=== PATIENT | female | born 1960 | race African-American/Black ===

== ENCOUNTER 2016-11-19 09:19 | Inpatient (IN) | payer OTHER ==
[2016-11-19 09:43] VITALS: BMI 15.7
--- NOTE | 2016-11-19 11:22 | HP ---
COWS - Scale Resting Pulse: 1= [place] 81-100 Sweatin= Chills/Flushing Restless Observation: 1= Difficult to Sit Still Pupil Size: 1= Pupils >than Normal Bone or Joint Aches: 2= Severe Diffuse Aches Runny Nose/ Eye Tearin= Runny Nose/Eyes GI Upset > 30mins: 3= Vomiting/Diarrhea Tremor Observation: 2= Slight Tremor Visible Yawning Observation: 1= 1-2x During Session Anxiety or Irritability: 2=Irritable/Anxious Goose Flesh Skin: 0=Smooth Skin COWS Score: 16 Admission [facility] Chief Complaint: "I want to stop." Pt. is here to Detox from Heroin. Allergies/Adverse Reactions: Allergies Allergy/AdvReac Type Severity Reaction Status Date / Time aspirin Allergy Intermediate Hives Verified 11/19/16 11:03 apple juice Allergy Intermediate Hives Uncoded 11/19/16 11:03 History of Present Illness: Pt. is a 56 YO female here to Detox from Heroin. This is pt.'s first admission to [facility] for Detox. Exam Limitations: No Limitations - Ebola screening Have you traveled outside of the country in the last 21 days: No Have you had contact with anyone from an Ebola affected area: No Have you been sick,other than usual withdrawal symptoms: No Do you have a fever: No - Review of Systems Constitutional: Chills, Diaphoresis, Fever, Loss of Appetite, Malaise, Night Sweats, Changes in sleep, Unexplained wgt Loss (Lost approx. 40 lbs. over last 2 weeks.) EENT: reports: Tearing, Nose Congestion, Sinus Pressure, Other (Upper and Lower dentures- pt. did not bring them with her. Pt. okay to chew Regular diet.) Respiratory: reports: SOB with Exertion, Productive cough Cardiac: reports: Palpitations, Syncope (Last Episode: approx. 3 months ago. Pt. went to ER at that time.) GI: reports: Nausea, Poor Appetite, Indigestion, Other (Heartburn.) : reports: No Symptoms Reported Musculoskeletal: reports: Back Pain, Joint Pain, Joint Swelling, Joint Stiffness Integumentary: reports: No Symptoms Reported Neuro: reports: Headache, Tremors Endocrine: reports: No Symptoms Reported Hematology: reports: No Symptoms Reported Psychiatric: reports: Judgement Intact, Mood/Affect Appropiate, Anxious, Depressed (Takes med.) Other Systems: Reviewed and Negative Patient History - Patient Medical History Hx Anemia: No Hx Asthma: Yes (On meds.) Hx Chronic Obstructive Pulmonary Disease (COPD): Yes (Bronchitis and Emphysema.) Hx Cancer: No Hx Cardiac Disorders: Yes (tachycardia) Hx Congestive Heart Failure: No Hx Hypertension: Yes (On med.) Hx Hypercholesterolemia: Yes (On med.) Hx Pacemaker: No HX Cerebrovascular Accident: No Hx Seizures: No Hx Dementia: No Hx Diabetes: Yes (BGM 103; On meds.) Hx Gastrointestinal Disorders: No Hx Liver Disease: Yes (Hep C, Diagnosed: 09/2016. No Treatment yet.) Hx Genitourinary Disorders: No Hx Sexually Transmitted Disorders: No Hx Renal Disease (ESRD): No Hx Thyroid Disease: No Hx Human Immunodeficiency Virus (HIV): No (Last tested: 09/2016: NEGATIVE.) Hx Hepatitis C: Yes (Hep C, Diagnosed: 09/2016. No Treatment yet.) Hx Depression: Yes (On med.) Hx Suicide Attempt: Yes (Approx. 5 years ago. PATIENT DENIES CURRENT SI / HI.) Hx Bipolar Disorder: No Hx Schizophrenia: No - Patient Surgical History Past Surgical History: Yes Hx Neurologic Surgery: No Hx Cataract Extraction: No Hx Cardiac Surgery: No Hx Lung Surgery: No Hx Breast Surgery: No Hx Breast Biopsy: No Hx Abdominal Surgery: Yes (hysterctomy-1978) Hx Appendectomy: No Hx Cholecystectomy: No Hx Genitourinary Surgery: No Hx Section: No Hx Orthopedic Surgery: No Hx Hysterectomy: Yes (1978.) Anesthesia Reaction: No - PPD History Previous Implant?: Yes Documented Results: Negative w/o proof Implanted On Prior [facility] Admission?: No PPD to be Administered?: Yes - Reproductive History Patient is a Female of Child Bearing Age (11 -55 yrs old): No Last Menstrual Period: 11/04/78 LMP comment: HYSTERECTOMY: 1978. Patient : No - Smoking Cessation Smoking history: Current every day smoker Have you smoked in the past 12 months: Yes Aproximately how many cigarettes per day: 2 Cigars Per Day: 0 Hx Chewing Tobacco Use: No Initiated information on smoking cessation: Yes 'Breaking Loose' booklet given: 11/19/16 (GIVEN ON UNIT.) - Substance & Tx. History Hx Alcohol Use: Yes Hx Substance Use: Yes Substance Use Type: Alcohol, Cocaine, Heroin, Opiates, Prescribed, Tranquilizers Hx Substance Use Treatment: No - Substances Abused Heroin Route: Inhalation Frequency: Daily Amount used: 4 bags Age of first use: 36 Date of Last Use: 11/18/16 Cocaine Route: Smoking Frequency: Daily Amount used: $100 Age of first use: 25 Date of Last Use: 11/18/16 Marijuana/Hashish Route: Smoking Frequency: Daily Amount used: $30 Age of first use: 25 Date of Last Use: 11/17/16 Alprazolam (Xanax) Route: Oral Frequency: Daily Amount used: 2 MG BID Age of first use: 21 Date of Last Use: 11/17/16 Family Disease History - Family Disease History Family Disease History: Heart Disease: Sister (Asthma, [place], 3 .), [place]: Father (Colon [place].), Mother (Throat [place].), Brother (Pneumonia, .), Sister , Respiratory: Sister Admission Physical Exam [facility] - Vital Signs Vital Signs: Vital Signs - 24 hr 11/19/16 09:40 Temperature 97.8 F Pulse Rate 81 Respiratory 18 Rate Blood Pressure 125/92 - Physical General Appearance: Yes: Appropriately Dressed, Mild Distress, Thin, Tremorous, Anxious HEENTM: Yes: Hearing grossly Normal, Normocephalic, Normal Voice, VENESSA, Tm's normal Respiratory: Yes: Chest Non-Tender, Lungs Clear, No Respiratory Distress Neck: Yes: No masses,lesions,Nodules, Supple, Trachea in good position Breast: Yes: Breast Exam Deferred Cardiology: Yes: Regular Rhythm, Regular Rate, S1, S2 Abdominal: Yes: Normal Bowel Sounds, Non Tender, Flat, Soft Genitourinary: Yes: Within Normal Limits Back: Yes: Decreased Range of Motion Musculoskeletal: Yes: Gait Steady, Back pain, Joint Stiffness Extremities: Yes: Tremors Neurological: Yes: Alert, Normal Mood/Affect, Normal Response, Disoriented (To Current Location.) Integumentary: Yes: Normal Color, Dry, Warm Lymphatic: Yes: Within Normal Limits - Diagnostic (1) Opioid dependence with withdrawal Current Visit: Yes Status: Acute (2) Cocaine dependence, uncomplicated Current Visit: Yes Status: Acute (3) Cannabis dependence, uncomplicated Current Visit: Yes Status: Acute (4) Nicotine dependence Current Visit: Yes Status: Chronic Qualifiers: Nicotine product type: cigarettes Substance use status: uncomplicated Qualified Code(s): F17.210 - Nicotine dependence, cigarettes, uncomplicated (5) Hypertension Current Visit: Yes Status: Chronic Qualifiers: Hypertension type: essential hypertension Qualified Code(s): I10 - Essential (primary) hypertension (6) Diabetes mellitus Current Visit: Yes Status: Chronic Qualifiers: Diabetes mellitus type: type 2 Diabetes mellitus complication status: without complication Diabetes mellitus fdc insulin use: with fdc use Qualified Code(s): E11.9 - Type 2 diabetes mellitus without complications; Z79.4 - penitentiary (current) use of insulin (7) Hepatitis C Current Visit: Yes Status: Chronic Qualifiers: Viral hepatitis chronicity: chronic Hepatic coma status: without hepatic coma Qualified Code(s): B18.2 - Chronic viral hepatitis C (8) Asthma Current Visit: Yes Status: Chronic Qualifiers: Asthma severity: mild persistent Asthma complication type: uncomplicated Qualified Code(s): J45.30 - Mild persistent asthma, uncomplicated (9) COPD (chronic obstructive pulmonary disease) Current Visit: Yes Status: Chronic Qualifiers: COPD type: chronic bronchitis Chronic bronchitis type: unspecified Qualified Code(s): J42 - Unspecified chronic bronchitis Cleared for Admission S - Detox or Rehab [facility] Level of Care: Medically Managed Detox Regimen/Protocol: Methadone (ADVISED PATIENT TO FOLLOW-UP WITH [facility]ER / REHAB MEDICAL PROVIDER AFTER DISCHARGE FROM DETOX FOR GENERAL MEDICAL ASSESSMENT.) [facility] Breath Alcohol Content Breath Alcohol Content: 0 Urine Pregancy Test - Result Urine Test Results: Negative- NO Line Present Urine Drug Screen - Results Drug Screen Negative: No Urine Drug Screen Results: KATHLEEN-Cocaine, OPI-Opiates
[2016-11-19] MEDS ORDERED: MAG HYDROX/AL HYDROX/SIMETH 30 ML UNIT-DOSE CUP PO PRN (12:02)
[2016-11-19] MEDS ORDERED: MENTHOL/PHENOL 1 EACH UD MM PRN (12:02)
[2016-11-19] MEDS ORDERED: MAGNESIUM HYDROX 2400MG/30ML ORAL SUSPENSION 30 ML CUP PO PRN (12:02)
[2016-11-19] MEDS ORDERED: P-EPHED 60MG/TRIPROLIDI 2.5MG TABLET PO PRN (12:02)
[2016-11-19] MEDS ORDERED: hydrOXYzine PAMOATE 50 MG CAPSULE (FP) PO PRN (12:02)
[2016-11-19] MEDS ORDERED: guaiFENesin/D-METHORPHAN HB 10 ML UNIT-DOSE CUPS PO PRN (12:02)
[2016-11-19] MEDS ORDERED: MAGNESIUM CITRATE 300 ML BOTTLE PO PRN (12:02)
[2016-11-19] MEDS ORDERED: LOPERAMIDE HCL 2 MG CAPSULE PO PRN (12:02)
[2016-11-19] MEDS ORDERED: METHADONE HCL 10 MG TABLET (FOR DETOX USE ONLY) PO ONE ×2 (12:02→23:00)
[2016-11-19] MEDS: cloNIDine HCL 0.1 MG TABLET PO SCH (13:25)
[2016-11-19] MEDS: diazePAM 5 MG TABLET PO PRN ×2 (13:25→22:45)
[2016-11-19] MEDS: NICOTINE 14 MG/24 HOURS TOPICAL PATCH TD SCH (13:26)
[2016-11-19] MEDS ORDERED: BUDESONIDE/FORMETEROL FUMARATE 80/4.5 mcg INHALER IH SCH (13:30)
[2016-11-19] MEDS: glyBURIDE 5 MG TABLET (UD) PO SCH (13:40)
[2016-11-19] MEDS: LIDOCAINE 5% TOPICAL PATCH TP SCH (14:07)
[2016-11-19] MEDS: BUDESONIDE/FORMETEROL FUMARATE 160/4.5 mcg INHALER IH SCH (14:20)
[2016-11-19 17:40] LABS: URINE APPEARANCE CLEAR; URINE BILIRUBIN NEGATIVE (NEGATIVE); URINE BLOOD NEGATIVE (NEGATIVE); URINE COLOR LTYELLOW; URINE GLUCOSE (UA) NEGATIVE (NEGATIVE); URINE KETONE NEGATIVE (NEGATIVE); URINE LEUK ESTERASE NEGATIVE (NEGATIVE); URINE NITRITE NEGATIVE (NEGATIVE); URINE PROTEIN NEGATIVE (NEGATIVE); URINE UROBILINOGEN NEGATIVE E.U./dl (0.2-1.0)
[2016-11-19] MEDS: CARVEDILOL 3.125 MG TABLET (FP) PO SCH (22:44)
[2016-11-19] MEDS: THIAMINE HCL 100 MG TABLET (FP) PO SCH (22:44)
[2016-11-19] MEDS: INSULIN DETEMIR 100 UNITS/ML MDV SQ SCH (22:48)
[2016-11-20] MEDS: diphenhydrAMINE HCL 50 MG CAPSULE PO PRN ×2 (02:53→22:42)
--- NOTE | 2016-11-20 08:44 | EKG ---
Test Reason : Blood Pressure : / mmHG Vent. Rate : 074 BPM Atrial Rate : 074 BPM P-R Int : 130 ms QRS Dur : 082 ms QT Int : 402 ms P-R-T Axes : 081 072 059 degrees QTc Int : 446 ms NORMAL SINUS RHYTHM VOLTAGE CRITERIA FOR LEFT VENTRICULAR HYPERTROPHY ABNORMAL ECG NO PREVIOUS ECGS AVAILABLE Confirmed by AMBER SHELDON MD ([id number]) on 11/20/2016 8:43:50 AM Referred By: Dawit Rodriguez Confirmed By:AMBER SHELDON MD
--- NOTE | 2016-11-20 09:21 | CONSULT ---
[facility] Psychiatric Consult - Data Date of interview: 11/20/16 Admission source: [facility] Identifying data: This is 56 yeares old male wqith no psychiatric hospitralizatiuon history intoxicated with: Cocaine, Cannabis, Xanax, Opioids and Nicotine Substance Abuse History: - Smoking Cessation. Smoking history: Current every day smoker. Have you smoked in the past 12 months: Yes. Aproximately how many cigarettes per day: 2. Cigars Per Day: 0. Hx Chewing Tobacco Use: No. Initiated information on smoking cessation: Yes. 'Breaking Loose' booklet given : 11/19/16 (GIVEN ON UNIT.). - Substance & Tx. History. Hx Alcohol Use: Yes. Hx Substance Use: Yes. Substance Use Type: Alcohol, Cocaine, Heroin, Opiates, Prescribed, Tranquilizers. Hx Substance Use Treatment: No. - Substances Abused. Heroin. Route: Inhalation. Frequency: Daily. Amount used: 4 bags. Age of first use: 36. Date of Last Use: 11/18/16. Cocaine. Route: Smoking. Frequency: Daily. Amount used: $100. Age of first use: 25. Date of Last Use: 11/18/16. Marijuana/Hashish. Route: Smoking. Frequency: Daily. Amount used: $30. Age of first use: 25. Date of Last Use: 11/17/16. Alprazolam (Xanax). Route: Oral. Frequency: Daily. Amount used: 2 MG BID. Age of first use: 21. Date of Last Use: 11/17/16 Medical History: Asthma, COPD, DM, HepC+, HTN Psychiatric History: Patient reports history of depression and anxiety, reports no mdicationws taking prior to admission Physical/Sexual Abuse/Trauma History: Denies Additional Comment: Observation. Detox [facility] Mental Status Exam - Mental Status Exam Alert and Oriented to: Person Cognitive Function: Fair Patient Appearance: Unkempt Affect: Flat Patient Behavior: Sedated Speech Pattern: Delayed Voice Loudness: Mildly Soft/Quiet Thought Process: Circumstantial Thought Disorder: Being Controlled Hallucinations: Denies Suicidal Ideation: Denies Homicidal Ideation: Denies Insight/Judgement: Fair Sleep: Difficulty falling asleep Appetite: Weight gain Muscle strength/Tone: Mild Hypotonicity Gait/Station: Shuffling Additional Comments: Observation. Detox Unit [facility] Psychiatric Findings - Problem List ([place] 1, 2,3) (1) Cannabis dependence, uncomplicated Current Visit: Yes Status: Acute (2) Cocaine dependence, uncomplicated Current Visit: Yes Status: Acute (3) Opioid dependence with withdrawal Current Visit: Yes Status: Acute (4) Nicotine dependence Current Visit: Yes Status: Chronic Qualifiers: Nicotine product type: cigarettes Substance use status: uncomplicated Qualified Code(s): F17.210 - Nicotine dependence, cigarettes, uncomplicated (5) Drug-induced mood disorder Current Visit: Yes Status: Acute - Initial Treatment Plan Initial Treatment Plan: Observation. Detox Unit [facility]
--- NOTE | 2016-11-20 09:29 | PN ---
BHS COWS - Scale Resting Pulse: 1= [place] 81-100 Sweatin=Flushed/Facial Moisture Restless Observation: 1= Difficult to Sit Still Pupil Size: 1= Pupils >than Normal Bone or Joint Aches: 2= Severe Diffuse Aches Runny Nose/ Eye Tearin= Runny Nose/Eyes GI Upset > 30mins: 2= Nausea/Diarrhea Tremor Observation of Outstretched Hands: 1= Tremor Stout, Not Seen Yawning Observation: 0= None Anxiety or Irritability: 0= None Goose Flesh Skin: 0=Smooth Skin COWS Score: 12 BHS Progress Note (SOAP) Subjective: interrupted sleep, sweats Objective: 11/20/16 09:28 Vital Signs Temperature 97.3 F L 11/20/16 06:00 Pulse Rate 60 11/20/16 06:00 Respiratory Rate 16 11/20/16 06:00 Blood Pressure 103/63 11/20/16 06:00 O2 Sat by Pulse Oximetry (%) Laboratory Tests 11/19/16 11/19/16 11/19/16 10:56 16:41 17:29 POC Glucometer 103 134 Urine Color Ltyellow Urine Appearance Clear Urine pH 6.0 Ur Specific [place] 1.015 Urine Protein Negative Urine Glucose (UA) Negative Urine Ketones Negative Urine Blood Negative Urine Nitrite Negative Urine Bilirubin Negative Urine Urobilinogen Negative Ur Leukocyte Esterase Negative 11/20/16 06:20 POC Glucometer 91 Urine Color Urine Appearance Urine pH Ur Specific [place] Urine Protein Urine Glucose (UA) Urine Ketones Urine Blood Urine Nitrite Urine Bilirubin Urine Urobilinogen Ur Leukocyte Esterase pending labs pt aox3 with nausea and vomiting 11/21/16 10:28 Assessment: 11/20/16 09:29 withdrawal sx's Plan: cont. detox increase fluids tigan im f/up pending labs
[2016-11-20] MEDS ORDERED: METHADONE HCL 10 MG TABLET (FOR DETOX USE ONLY) PO ONE (10:00)
[2016-11-20 10:09] LABS: MCH 30.8 pg (25.7-33.7); MCHC 32.2 g/dl (32.0-35.9); MEAN CELL VOLUME 95.6 fl (80-96); MEAN PLT VOLUME 9.8 fl (7.5-11.1); PLATELET COUNT 139 K/MM3 (134-434); WHITE BLOOD COUNT 4.9 K/mm3 (4.0-10.0)
[2016-11-20 10:38] LABS: ALBUMIN 3.3 g/dl (3.4-5.0); ALK PHOS 61 U/L (45-117); ANION GAP 8 (8-16); BILIRUBIN,TOTAL 0.4 mg/dL (0.2-1.0); CALCIUM 9.1 mg/dL (8.5-10.1); CO2 29 mmol/L (21-32); COCKROFT - GAULT 64.82; CREATININE 0.8 mg/dL (0.7-1.3); GLUCOSE,RANDOM 74 mg/dL (74-106); SGOT/AST 24 U/L (15-37); SGPT/ALT 23 U/L (12-78); TOT PROT 6.5 g/dl (6.4-8.2)
[2016-11-20] MEDS: TRIMETHOBENZAMIDE HCL 200MG/2ML INJ IM PRN (11:10)
[2016-11-20] MEDS: glyBURIDE 5 MG TABLET (UD) PO SCH (12:11)
[2016-11-20] MEDS: PRENATAL VITAMINS W/ FOLIC ACID TABLET (FP) PO SCH (12:11)
[2016-11-20] MEDS: CARVEDILOL 3.125 MG TABLET (FP) PO SCH ×2 (12:12→22:39)
[2016-11-20] MEDS: ESTROGENS,CONJUGATED 0.625 MG TABLET PO SCH (12:13)
[2016-11-20] MEDS: COLCHICINE 0.6 MG TABLET (FP) PO SCH (12:13)
[2016-11-20] MEDS: cloNIDine HCL 0.1 MG TABLET PO SCH (12:13)
[2016-11-20] MEDS: ATORVASTATIN CA 20 MG TABLET (FP) PO SCH (12:14)
[2016-11-20] MEDS: CHOLECALCIFEROL (VITAMIN D3) 1,000 UNIT TABLET (FP) PO SCH (12:14)
[2016-11-20] MEDS: BUDESONIDE/FORMETEROL FUMARATE 160/4.5 mcg INHALER IH SCH (12:14)
[2016-11-20] MEDS: NICOTINE 14 MG/24 HOURS TOPICAL PATCH TD SCH (12:15)
[2016-11-20] MEDS: LIDOCAINE 5% TOPICAL PATCH TP SCH (12:16)
[2016-11-20] MEDS: ALBUTEROL SO4 2.5/IPRATROPIUM 0.5 INH SOL 3 ML VIAL.NEB. NEB PRN (12:38)
[2016-11-20 13:50] LABS: SICKLE CELL SCREEN NEGATIVE (NEGATIVE)
[2016-11-20] MEDS: THIAMINE HCL 100 MG TABLET (FP) PO SCH (22:39)
[2016-11-20] MEDS: INSULIN DETEMIR 100 UNITS/ML MDV SQ SCH (23:19)
[2016-11-21] MEDS: ALBUTEROL SO4 6.7 GM HFA INHALER IH PRN (05:48)
[2016-11-21] MEDS: glyBURIDE 5 MG TABLET (UD) PO SCH (09:43)
[2016-11-21] MEDS: TRIMETHOBENZAMIDE HCL 200MG/2ML INJ IM PRN (09:43)
[2016-11-21] MEDS ORDERED: METHADONE HCL 5 MG TABLET (FOR DETOX USE ONLY) PO ONE (10:00)
--- NOTE | 2016-11-21 10:34 | PN ---
BHS COWS - Scale Resting Pulse: 0= [place] 80 or Below Sweatin= Chills/Flushing Restless Observation: 1= Difficult to Sit Still Pupil Size: 1= Pupils >than Normal Bone or Joint Aches: 2= Severe Diffuse Aches Runny Nose/ Eye Tearin= Nasal Congestion GI Upset > 30mins: 1= Stomach Cramp Tremor Observation of Outstretched Hands: 1= Tremor [place], Not Seen Yawning Observation: 0= None Anxiety or Irritability: 2=Irritable/Anxious Goose Flesh Skin: 0=Smooth Skin COWS Score: 10 S Progress Note (SOAP) Subjective: interrupted sleep, sweats, lbp Objective: 11/21/16 10:31 Vital Signs Temperature 98.2 F 11/21/16 06:30 Pulse Rate 79 11/21/16 06:30 Respiratory Rate 18 11/21/16 06:30 Blood Pressure 104/72 11/21/16 06:30 O2 Sat by Pulse Oximetry (%) Laboratory Tests 11/19/16 11/19/16 11/19/16 10:56 16:41 17:29 WBC RBC Hgb Hct MCV MCHC RDW Plt Count MPV Sickle Cell Screen Sodium Potassium Chloride Carbon Dioxide Anion Gap BUN Creatinine Creat Clearance w eGFR POC Glucometer 103 134 Random Glucose Calcium Total Bilirubin AST ALT Alkaline Phosphatase Total Protein Albumin Urine Color Ltyellow Urine Appearance Clear Urine pH 6.0 Ur Specific [place] 1.015 Urine Protein Negative Urine Glucose (UA) Negative Urine Ketones Negative Urine Blood Negative Urine Nitrite Negative Urine Bilirubin Negative Urine Urobilinogen Negative Ur Leukocyte Esterase Negative RPR Titer 11/20/16 11/20/16 11/20/16 06:20 07:00 07:00 WBC 4.9 RBC 4.01 Hgb 12.4 Hct 38.3 MCV 95.6 MCHC 32.2 RDW 16.0 H Plt Count 139 MPV 9.8 Sickle Cell Screen Negative Sodium 139 Potassium 3.8 Chloride 102 Carbon Dioxide 29 Anion Gap 8 BUN 14 Creatinine 0.8 Creat Clearance w eGFR > 60 POC Glucometer 91 Random Glucose 74 Calcium 9.1 Total Bilirubin 0.4 AST 24 ALT 23 Alkaline Phosphatase 61 Total Protein 6.5 Albumin 3.3 L Urine Color Urine Appearance Urine pH Ur Specific [place] Urine Protein Urine Glucose (UA) Urine Ketones Urine Blood Urine Nitrite Urine Bilirubin Urine Urobilinogen Ur Leukocyte Esterase RPR Titer 11/20/16 11/20/16 11/20/16 07:00 11:28 16:46 WBC RBC Hgb Hct MCV MCHC RDW Plt Count MPV Sickle Cell Screen Sodium Potassium Chloride Carbon Dioxide Anion Gap BUN Creatinine Creat Clearance w eGFR POC Glucometer 115 98 Random Glucose Calcium Total Bilirubin AST ALT Alkaline Phosphatase Total Protein Albumin Urine Color Urine Appearance Urine pH Ur Specific [place] Urine Protein Urine Glucose (UA) Urine Ketones Urine Blood Urine Nitrite Urine Bilirubin Urine Urobilinogen Ur Leukocyte Esterase RPR Titer Nonreactive 11/20/16 11/21/16 22:09 05:26 WBC RBC Hgb Hct MCV MCHC RDW Plt Count MPV Sickle Cell Screen Sodium Potassium Chloride Carbon Dioxide Anion Gap BUN Creatinine Creat Clearance w eGFR POC Glucometer 92 115 Random Glucose Calcium Total Bilirubin AST ALT Alkaline Phosphatase Total Protein Albumin Urine Color Urine Appearance Urine pH Ur Specific [place] Urine Protein Urine Glucose (UA) Urine Ketones Urine Blood Urine Nitrite Urine Bilirubin Urine Urobilinogen Ur Leukocyte Esterase RPR Titer pt aox3 ambualting lb - decreased ROM 11/21/16 10:32 Assessment: 11/21/16 10:32 withdrawal sx's lbp Plan: cont. detox increase fluids cont lidocaine patch
[2016-11-21] MEDS: ESTROGENS,CONJUGATED 0.625 MG TABLET PO SCH (10:38)
[2016-11-21] MEDS: BUDESONIDE/FORMETEROL FUMARATE 160/4.5 mcg INHALER IH SCH (10:38)
[2016-11-21] MEDS: ATORVASTATIN CA 20 MG TABLET (FP) PO SCH (10:38)
[2016-11-21] MEDS: PRENATAL VITAMINS W/ FOLIC ACID TABLET (FP) PO SCH (10:38)
[2016-11-21] MEDS: COLCHICINE 0.6 MG TABLET (FP) PO SCH (10:39)
[2016-11-21] MEDS: NICOTINE 14 MG/24 HOURS TOPICAL PATCH TD SCH (10:39)
[2016-11-21] MEDS: CARVEDILOL 3.125 MG TABLET (FP) PO SCH ×2 (10:39→22:06)
[2016-11-21] MEDS: CHOLECALCIFEROL (VITAMIN D3) 1,000 UNIT TABLET (FP) PO SCH (10:39)
[2016-11-21] MEDS: cloNIDine HCL 0.1 MG TABLET PO SCH (10:39)
[2016-11-21] MEDS: LIDOCAINE 5% TOPICAL PATCH TP SCH (10:40)
[2016-11-21] MEDS: NICOTINE POLACRILEX 2 MG GUM BUC PRN (10:43)
[2016-11-21] MEDS: ACETAMINOPHEN 325 MG TABLET (FP) PO PRN (18:35)
[2016-11-21] MEDS: THIAMINE HCL 100 MG TABLET (FP) PO SCH (22:05)
[2016-11-21] MEDS: INSULIN DETEMIR 100 UNITS/ML MDV SQ SCH (23:48)
[2016-11-22] MEDS: diphenhydrAMINE HCL 50 MG CAPSULE PO PRN ×2 (02:27→22:10)
[2016-11-22] MEDS: ACETAMINOPHEN 325 MG TABLET (FP) PO PRN (02:27)
[2016-11-22] MEDS: diazePAM 5 MG TABLET PO PRN ×2 (05:33→10:41)
[2016-11-22] MEDS: glyBURIDE 5 MG TABLET (UD) PO SCH (08:02)
[2016-11-22] MEDS: ALBUTEROL SO4 2.5/IPRATROPIUM 0.5 INH SOL 3 ML VIAL.NEB. NEB PRN (08:05)
[2016-11-22] MEDS ORDERED: METHADONE HCL 5 MG TABLET (FOR DETOX USE ONLY) PO ONE (10:00)
[2016-11-22] MEDS: PRENATAL VITAMINS W/ FOLIC ACID TABLET (FP) PO SCH (10:39)
[2016-11-22] MEDS: ATORVASTATIN CA 20 MG TABLET (FP) PO SCH (10:40)
[2016-11-22] MEDS: cloNIDine HCL 0.1 MG TABLET PO SCH (10:40)
[2016-11-22] MEDS: COLCHICINE 0.6 MG TABLET (FP) PO SCH (10:40)
[2016-11-22] MEDS: CARVEDILOL 3.125 MG TABLET (FP) PO SCH ×2 (10:41→22:10)
[2016-11-22] MEDS: BUDESONIDE/FORMETEROL FUMARATE 160/4.5 mcg INHALER IH SCH (10:43)
[2016-11-22] MEDS: ESTROGENS,CONJUGATED 0.625 MG TABLET PO SCH (10:46)
[2016-11-22] MEDS: NICOTINE 14 MG/24 HOURS TOPICAL PATCH TD SCH (10:46)
[2016-11-22] MEDS: LIDOCAINE 5% TOPICAL PATCH TP SCH (11:06)
[2016-11-22] MEDS: CHOLECALCIFEROL (VITAMIN D3) 1,000 UNIT TABLET (FP) PO SCH (11:07)
[2016-11-22] MEDS ORDERED: RANITIDINE HCL 150 MG TABLET (FP) PO ONE (11:09)
--- NOTE | 2016-11-22 11:16 | PN ---
BHS Progress Note (SOAP) Subjective: interrupted sleep, sweats , n/v epigastric pain Objective: 11/22/16 11:12 Vital Signs Temperature 98.1 F 11/22/16 06:00 Pulse Rate 75 11/22/16 06:00 Respiratory Rate 16 11/22/16 06:00 Blood Pressure 112/67 11/22/16 06:00 O2 Sat by Pulse Oximetry (%) Laboratory Tests 11/19/16 11/19/16 11/19/16 10:56 16:41 17:29 WBC RBC Hgb Hct MCV MCHC RDW Plt Count MPV Sickle Cell Screen Sodium Potassium Chloride Carbon Dioxide Anion Gap BUN Creatinine Creat Clearance w eGFR POC Glucometer 103 134 Random Glucose Calcium Total Bilirubin AST ALT Alkaline Phosphatase Total Protein Albumin Urine Color Ltyellow Urine Appearance Clear Urine pH 6.0 Ur Specific [place] 1.015 Urine Protein Negative Urine Glucose (UA) Negative Urine Ketones Negative Urine Blood Negative Urine Nitrite Negative Urine Bilirubin Negative Urine Urobilinogen Negative Ur Leukocyte Esterase Negative RPR Titer 11/20/16 11/20/16 11/20/16 06:20 07:00 07:00 WBC 4.9 RBC 4.01 Hgb 12.4 Hct 38.3 MCV 95.6 MCHC 32.2 RDW 16.0 H Plt Count 139 MPV 9.8 Sickle Cell Screen Negative Sodium 139 Potassium 3.8 Chloride 102 Carbon Dioxide 29 Anion Gap 8 BUN 14 Creatinine 0.8 Creat Clearance w eGFR > 60 POC Glucometer 91 Random Glucose 74 Calcium 9.1 Total Bilirubin 0.4 AST 24 ALT 23 Alkaline Phosphatase 61 Total Protein 6.5 Albumin 3.3 L Urine Color Urine Appearance Urine pH Ur Specific [place] Urine Protein Urine Glucose (UA) Urine Ketones Urine Blood Urine Nitrite Urine Bilirubin Urine Urobilinogen Ur Leukocyte Esterase RPR Titer 11/20/16 11/20/16 11/20/16 07:00 11:28 16:46 WBC RBC Hgb Hct MCV MCHC RDW Plt Count MPV Sickle Cell Screen Sodium Potassium Chloride Carbon Dioxide Anion Gap BUN Creatinine Creat Clearance w eGFR POC Glucometer 115 98 Random Glucose Calcium Total Bilirubin AST ALT Alkaline Phosphatase Total Protein Albumin Urine Color Urine Appearance Urine pH Ur Specific [place] Urine Protein Urine Glucose (UA) Urine Ketones Urine Blood Urine Nitrite Urine Bilirubin Urine Urobilinogen Ur Leukocyte Esterase RPR Titer Nonreactive 11/20/16 11/21/16 11/21/16 22:09 05:26 12:08 WBC RBC Hgb Hct MCV MCHC RDW Plt Count MPV Sickle Cell Screen Sodium Potassium Chloride Carbon Dioxide Anion Gap BUN Creatinine Creat Clearance w eGFR POC Glucometer 92 115 122 Random Glucose Calcium Total Bilirubin AST ALT Alkaline Phosphatase Total Protein Albumin Urine Color Urine Appearance Urine pH Ur Specific [place] Urine Protein Urine Glucose (UA) Urine Ketones Urine Blood Urine Nitrite Urine Bilirubin Urine Urobilinogen Ur Leukocyte Esterase RPR Titer 11/21/16 11/22/16 16:44 05:32 WBC RBC Hgb Hct MCV MCHC RDW Plt Count MPV Sickle Cell Screen Sodium Potassium Chloride Carbon Dioxide Anion Gap BUN Creatinine Creat Clearance w eGFR POC Glucometer 80 133 Random Glucose Calcium Total Bilirubin AST ALT Alkaline Phosphatase Total Protein Albumin Urine Color Urine Appearance Urine pH Ur Specific [place] Urine Protein Urine Glucose (UA) Urine Ketones Urine Blood Urine Nitrite Urine Bilirubin Urine Urobilinogen Ur Leukocyte Esterase RPR Titer pt aox3 lying in bed abd soft +tenderness epigastric area Assessment: 11/22/16 11:13 withdrawal sxx's epigatric pain Plan: cont detox lipase zantac 150mg bid tigan 200mg im prn
[2016-11-22 15:06] LABS: AMYLASE 129 U/L (25-115); SGOT/AST 50 U/L (15-37); SGPT/ALT 26 U/L (12-78)
[2016-11-22] MEDS: THIAMINE HCL 100 MG TABLET (FP) PO SCH (22:09)
[2016-11-22] MEDS: ALBUTEROL SO4 6.7 GM HFA INHALER IH PRN (22:10)
[2016-11-22] MEDS: INSULIN DETEMIR 100 UNITS/ML MDV SQ SCH (22:10)
[2016-11-22] MEDS: RANITIDINE HCL 150 MG TABLET (FP) PO SCH (22:10)
[2016-11-23] MEDS: glyBURIDE 5 MG TABLET (UD) PO SCH (09:22)
[2016-11-23] MEDS ORDERED: METHADONE HCL 10 MG TABLET (FOR DETOX USE ONLY) PO ONE (10:00)
[2016-11-23] MEDS: PRENATAL VITAMINS W/ FOLIC ACID TABLET (FP) PO SCH (11:00)
[2016-11-23] MEDS: cloNIDine HCL 0.1 MG TABLET PO SCH (11:01)
[2016-11-23] MEDS: CARVEDILOL 3.125 MG TABLET (FP) PO SCH ×2 (11:01→22:38)
[2016-11-23] MEDS: COLCHICINE 0.6 MG TABLET (FP) PO SCH (11:01)
[2016-11-23] MEDS: ATORVASTATIN CA 20 MG TABLET (FP) PO SCH (11:01)
[2016-11-23] MEDS: NICOTINE 14 MG/24 HOURS TOPICAL PATCH TD SCH (11:02)
[2016-11-23] MEDS: ESTROGENS,CONJUGATED 0.625 MG TABLET PO SCH (11:02)
[2016-11-23] MEDS: CHOLECALCIFEROL (VITAMIN D3) 1,000 UNIT TABLET (FP) PO SCH (11:03)
[2016-11-23] MEDS: BUDESONIDE/FORMETEROL FUMARATE 160/4.5 mcg INHALER IH SCH (11:03)
[2016-11-23] MEDS: NICOTINE POLACRILEX 2 MG GUM BUC PRN ×2 (11:09→18:57)
--- NOTE | 2016-11-23 11:18 | PN ---
BHS Progress Note (SOAP) Subjective: interrupted sleep, sweats, shakes , d, lbp, left rib pains Objective: 11/23/16 11:15 Vital Signs Temperature 97.2 F L 11/23/16 10:00 Pulse Rate 81 11/23/16 10:00 Respiratory Rate 18 11/23/16 10:00 Blood Pressure 109/66 11/23/16 10:00 O2 Sat by Pulse Oximetry (%) Laboratory Tests 11/19/16 11/19/16 11/19/16 10:56 16:41 17:29 WBC RBC Hgb Hct MCV MCHC RDW Plt Count MPV Sickle Cell Screen Sodium Potassium Chloride Carbon Dioxide Anion Gap BUN Creatinine Creat Clearance w eGFR POC Glucometer 103 134 Random Glucose Calcium Total Bilirubin AST ALT Alkaline Phosphatase Total Protein Albumin Total Amylase Lipase Urine Color Ltyellow Urine Appearance Clear Urine pH 6.0 Ur Specific [place] 1.015 Urine Protein Negative Urine Glucose (UA) Negative Urine Ketones Negative Urine Blood Negative Urine Nitrite Negative Urine Bilirubin Negative Urine Urobilinogen Negative Ur Leukocyte Esterase Negative RPR Titer 11/20/16 11/20/16 11/20/16 06:20 07:00 07:00 WBC 4.9 RBC 4.01 Hgb 12.4 Hct 38.3 MCV 95.6 MCHC 32.2 RDW 16.0 H Plt Count 139 MPV 9.8 Sickle Cell Screen Negative Sodium 139 Potassium 3.8 Chloride 102 Carbon Dioxide 29 Anion Gap 8 BUN 14 Creatinine 0.8 Creat Clearance w eGFR > 60 POC Glucometer 91 Random Glucose 74 Calcium 9.1 Total Bilirubin 0.4 AST 24 ALT 23 Alkaline Phosphatase 61 Total Protein 6.5 Albumin 3.3 L Total Amylase Lipase Urine Color Urine Appearance Urine pH Ur Specific [place] Urine Protein Urine Glucose (UA) Urine Ketones Urine Blood Urine Nitrite Urine Bilirubin Urine Urobilinogen Ur Leukocyte Esterase RPR Titer 11/20/16 11/20/16 11/20/16 07:00 11:28 16:46 WBC RBC Hgb Hct MCV MCHC RDW Plt Count MPV Sickle Cell Screen Sodium Potassium Chloride Carbon Dioxide Anion Gap BUN Creatinine Creat Clearance w eGFR POC Glucometer 115 98 Random Glucose Calcium Total Bilirubin AST ALT Alkaline Phosphatase Total Protein Albumin Total Amylase Lipase Urine Color Urine Appearance Urine pH Ur Specific [place] Urine Protein Urine Glucose (UA) Urine Ketones Urine Blood Urine Nitrite Urine Bilirubin Urine Urobilinogen Ur Leukocyte Esterase RPR Titer Nonreactive 11/20/16 11/21/16 11/21/16 22:09 05:26 12:08 WBC RBC Hgb Hct MCV MCHC RDW Plt Count MPV Sickle Cell Screen Sodium Potassium Chloride Carbon Dioxide Anion Gap BUN Creatinine Creat Clearance w eGFR POC Glucometer 92 115 122 Random Glucose Calcium Total Bilirubin AST ALT Alkaline Phosphatase Total Protein Albumin Total Amylase Lipase Urine Color Urine Appearance Urine pH Ur Specific [place] Urine Protein Urine Glucose (UA) Urine Ketones Urine Blood Urine Nitrite Urine Bilirubin Urine Urobilinogen Ur Leukocyte Esterase RPR Titer 11/21/16 11/22/16 11/22/16 16:44 05:32 11:30 WBC RBC Hgb Hct MCV MCHC RDW Plt Count MPV Sickle Cell Screen Sodium Potassium Chloride Carbon Dioxide Anion Gap BUN Creatinine Creat Clearance w eGFR POC Glucometer 80 133 Random Glucose Calcium Total Bilirubin AST 50 H D ALT 26 Alkaline Phosphatase Total Protein Albumin Total Amylase 129 H Lipase 82 Urine Color Urine Appearance Urine pH Ur Specific [place] Urine Protein Urine Glucose (UA) Urine Ketones Urine Blood Urine Nitrite Urine Bilirubin Urine Urobilinogen Ur Leukocyte Esterase RPR Titer 11/22/16 11/22/16 11/22/16 11:43 13:56 14:54 WBC RBC Hgb Hct MCV MCHC RDW Plt Count MPV Sickle Cell Screen Sodium Potassium Chloride Carbon Dioxide Anion Gap BUN Creatinine Creat Clearance w eGFR POC Glucometer 57 57 62 Random Glucose Calcium Total Bilirubin AST ALT Alkaline Phosphatase Total Protein Albumin Total Amylase Lipase Urine Color Urine Appearance Urine pH Ur Specific [place] Urine Protein Urine Glucose (UA) Urine Ketones Urine Blood Urine Nitrite Urine Bilirubin Urine Urobilinogen Ur Leukocyte Esterase RPR Titer 11/22/16 11/22/16 11/23/16 14:56 20:39 06:16 WBC RBC Hgb Hct MCV MCHC RDW Plt Count MPV Sickle Cell Screen Sodium Potassium Chloride Carbon Dioxide Anion Gap BUN Creatinine Creat Clearance w eGFR POC Glucometer 55 84 124 Random Glucose Calcium Total Bilirubin AST ALT Alkaline Phosphatase Total Protein Albumin Total Amylase Lipase Urine Color Urine Appearance Urine pH Ur Specific [place] Urine Protein Urine Glucose (UA) Urine Ketones Urine Blood Urine Nitrite Urine Bilirubin Urine Urobilinogen Ur Leukocyte Esterase RPR Titer pt aox3 ambulating nad left rib tenderness Assessment: 11/23/16 11:16 withdrawal sx's lbp left rib pains r/o fx Plan: cont detox increase fluids xray ribs motrin prn d/c in am imodium prn
[2016-11-23] MEDS: LIDOCAINE 5% TOPICAL PATCH TP SCH (11:38)
[2016-11-23] MEDS: RANITIDINE HCL 150 MG TABLET (FP) PO SCH ×3 (11:38→22:38)
--- NOTE | 2016-11-23 12:33 | EKG ---
Test Reason : Blood Pressure : / mmHG Vent. Rate : 080 BPM Atrial Rate : 080 BPM P-R Int : 130 ms QRS Dur : 076 ms QT Int : 382 ms P-R-T Axes : 074 064 053 degrees QTc Int : 440 ms NORMAL SINUS RHYTHM NONSPECIFIC T WAVE ABNORMALITY ABNORMAL ECG WHEN COMPARED WITH ECG OF 19-NOV-2016 12:50, NONSPECIFIC T WAVE ABNORMALITY NOW EVIDENT IN LATERAL LEADS Confirmed by SAI ISABEL, MARI ([id number]) on 11/23/2016 12:33:44 PM Referred By: Dawit Rodriguez Confirmed By:MARI GIBBS MD
[2016-11-23] MEDS: THIAMINE HCL 100 MG TABLET (FP) PO SCH (22:38)
[2016-11-23] MEDS: diphenhydrAMINE HCL 50 MG CAPSULE PO PRN (22:39)
[2016-11-23] MEDS: INSULIN DETEMIR 100 UNITS/ML MDV SQ SCH (23:28)
[2016-11-24] MEDS ORDERED: METHADONE HCL 5 MG TABLET (FOR DETOX USE ONLY) PO ONE (06:00)
[2016-11-24] MEDS: NICOTINE POLACRILEX 2 MG GUM BUC PRN (06:56)
[2016-11-24 07:15] VITALS: BP 113/75; PULSE 72; TEMP 97.9
[2016-11-24] MEDS: PRENATAL VITAMINS W/ FOLIC ACID TABLET (FP) PO SCH (10:02)
[2016-11-24] MEDS: COLCHICINE 0.6 MG TABLET (FP) PO SCH (10:02)
[2016-11-24] MEDS: RANITIDINE HCL 150 MG TABLET (FP) PO SCH (10:02)
[2016-11-24] MEDS: ATORVASTATIN CA 20 MG TABLET (FP) PO SCH (10:02)
[2016-11-24] MEDS: CARVEDILOL 3.125 MG TABLET (FP) PO SCH (10:03)
[2016-11-24] MEDS: NICOTINE 14 MG/24 HOURS TOPICAL PATCH TD SCH (10:04)
[2016-11-24] MEDS: cloNIDine HCL 0.1 MG TABLET PO SCH (10:04)
[2016-11-24] MEDS: ESTROGENS,CONJUGATED 0.625 MG TABLET PO SCH (10:05)
[2016-11-24] MEDS: BUDESONIDE/FORMETEROL FUMARATE 160/4.5 mcg INHALER IH SCH (10:05)
[2016-11-24] MEDS: CHOLECALCIFEROL (VITAMIN D3) 1,000 UNIT TABLET (FP) PO SCH (10:05)
[2016-11-24] MEDS: LIDOCAINE 5% TOPICAL PATCH TP SCH (10:22)
--- NOTE | 2016-11-24 13:36 | DS ---
[facility] Detox Discharge Summary Admission Date: 11/19/16 Discharge Date: 11/24/16 - History Present History: Cannabis Dependence, Cocaine Dependence, Opioid Dependence Additional Comments: ADVISED PATIENT TO FOLLOW-UP WITH [facility] / REHAB MEDICAL PROVIDER AFTER DISCHARGE FROM DETOX FOR GENERAL MEDICAL ASSESSMENT AND FOR ABNORMAL ADMISSION LAB VALUES. Pertinent Past History: Asthma, HTN, Hypercholesterolemia, COPD, Hep C, Depression, DM, Tachycardia. - Physical Exam Results Vital Signs: Vital Signs Temperature 97.9 F 11/24/16 07:15 Pulse Rate 72 11/24/16 07:15 Respiratory Rate 18 11/24/16 07:15 Blood Pressure 113/75 11/24/16 07:15 O2 Sat by Pulse Oximetry (%) Pertinent Admission Physical Exam Findings: WITHDRAWAL SYMPTOMS. Laboratory Last Values WBC 4.9 K/mm3 (4.0-10.0) 11/20/16 07:00 RBC 4.01 M/mm3 (4.00-5.60) 11/20/16 07:00 Hgb 12.4 GM/dL (11.7-16.9) 11/20/16 07:00 Hct 38.3 % (35.4-49) 11/20/16 07:00 MCV 95.6 fl (80-96) 11/20/16 07:00 MCHC 32.2 g/dl (32.0-35.9) 11/20/16 07:00 RDW 16.0 % (11.9-15.9) H 11/20/16 07:00 Plt Count 139 K/MM3 (134-434) 11/20/16 07:00 MPV 9.8 fl (7.5-11.1) 11/20/16 07:00 Sickle Cell Screen Negative (NEGATIVE) 11/20/16 07:00 Sodium 139 mmol/L (136-145) 11/20/16 07:00 Potassium 3.8 mmol/L (3.5-5.1) 11/20/16 07:00 Chloride 102 mmol/L (98-107) 11/20/16 07:00 Carbon Dioxide 29 mmol/L (21-32) 11/20/16 07:00 Anion Gap 8 (8-16) 11/20/16 07:00 BUN 14 mg/dL (7-18) 11/20/16 07:00 Creatinine 0.8 mg/dL (0.7-1.3) 11/20/16 07:00 Creat Clearance w eGFR > 60 (>60) 11/20/16 07:00 POC Glucometer 134 UNITS (()) 11/24/16 09:32 Random Glucose 74 mg/dL (74-106) 11/20/16 07:00 Calcium 9.1 mg/dL (8.5-10.1) 11/20/16 07:00 Total Bilirubin 0.4 mg/dL (0.2-1.0) 11/20/16 07:00 AST 50 U/L (15-37) H D 11/22/16 11:30 ALT 26 U/L (12-78) 11/22/16 11:30 Alkaline Phosphatase 61 U/L (45-117) 11/20/16 07:00 Total Protein 6.5 g/dl (6.4-8.2) 11/20/16 07:00 Albumin 3.3 g/dl (3.4-5.0) L 11/20/16 07:00 Total Amylase 129 U/L (25-115) H 11/22/16 11:30 Lipase 82 U/L (73-393) 11/22/16 11:30 Urine Color Ltyellow 11/19/16 17:29 Urine Appearance Clear 11/19/16 17:29 Urine pH 6.0 (5.0-8.0) 11/19/16 17:29 Ur Specific [place] 1.015 (1.001-1.035) 11/19/16 17:29 Urine Protein Negative (NEGATIVE) 11/19/16 17:29 Urine Glucose (UA) Negative (NEGATIVE) 11/19/16 17:29 Urine Ketones Negative (NEGATIVE) 11/19/16 17:29 Urine Blood Negative (NEGATIVE) 11/19/16 17:29 Urine Nitrite Negative (NEGATIVE) 11/19/16 17:29 Urine Bilirubin Negative (NEGATIVE) 11/19/16 17:29 Urine Urobilinogen Negative E.U./dl (0.2-1.0) 11/19/16 17:29 Ur Leukocyte Esterase Negative (NEGATIVE) 11/19/16 17:29 RPR Titer Nonreactive (NONREACTIVE) 11/20/16 07:00 LABS NOTED. - Treatment Hospital Course: Detox Protocol Followed, Detoxed Safely, Responded well, Discharged Condition Good, Rehab Referral Accepted Patient has Accepted a Rehab [facility] - Medication Discharge Medications: Ambulatory Orders Albuterol Sulfate Inhaler - [Ventolin Hfa Inhaler -] 1 - 2 inh PO QID 11/19/16 Budesonide/Formeterol Fumarate [SYMBICORT 160/4.5mcg -] 1 puff IH DAILY Carvedilol [Coreg -] 3.125 mg PO BID 11/19/16 Cholecalciferol (Vitamin D3) [Vitamin D3] 5,000 unit PO DAILY 11/19/16 Clonidine HCl [Catapres -] 0.2 mg PO DAILY 11/19/16 Colchicine 0.6 mg PO DAILY 11/19/16 Estrogens,Conjugated [Premarin -] 0.625 mg PO DAILY 11/19/16 Glyburide 5 mg PO DAILY 11/19/16 Insulin (Levemir) [Levemir Vial] 15 unit SQ HS 11/19/16 Metformin HCl [Metformin HCl ER] 1,000 mg PO DAILY 11/19/16 Multivitamins [Tab-A-Vit -] 1 tab PO DAILY 11/19/16 Salmeterol/Fluticasone [Advair 250Mcg/50Mcg] 1 inh PO BID 11/19/16 Simvastatin [Zocor -] 40 mg PO DAILY 11/19/16 Atorvastatin Ca [Lipitor] 20 mg PO DAILY 11/24/16 - Diagnosis (1) Opioid dependence with withdrawal Status: Acute (2) Cocaine dependence, uncomplicated Status: Acute (3) Cannabis dependence, uncomplicated Status: Acute (4) Nicotine dependence Status: Chronic Qualifiers: Nicotine product type: cigarettes Substance use status: uncomplicated Qualified Code(s): F17.210 - Nicotine dependence, cigarettes, uncomplicated (5) Hypertension Status: Chronic Qualifiers: Hypertension type: essential hypertension Qualified Code(s): I10 - Essential (primary) hypertension (6) Diabetes mellitus Status: Chronic Qualifiers: Diabetes mellitus type: type 2 Diabetes mellitus complication status: without complication Diabetes mellitus correction insulin use: with correction use Qualified Code(s): E11.9 - Type 2 diabetes mellitus without complications (7) Hepatitis C Status: Chronic Qualifiers: Viral hepatitis chronicity: chronic Hepatic coma status: without hepatic coma Qualified Code(s): B18.2 - Chronic viral hepatitis C (8) Asthma Status: Chronic Qualifiers: Asthma severity: mild intermittent Asthma complication type: uncomplicated Qualified Code(s): J45.20 - Mild intermittent asthma, uncomplicated (9) COPD (chronic obstructive pulmonary disease) Status: Chronic Qualifiers: COPD type: chronic bronchitis Chronic bronchitis type: unspecified Qualified Code(s): J42 - Unspecified chronic bronchitis - AMA Did Patient Leave Against Medical Advice: No
== END 2016-11-24 10:17 | disposition other institution (70) | DRG 773 ==
LOC: YASAS 09:19 → EDSEX 12:45 → Y6N 12:45
PROVIDERS: ADMIT Internal Medicine; ATTEND Internal Medicine Addiction Medicine
PROC: HZ2ZZZZ Detoxification Services for Substance Abuse Treatment (ICD-10-PCS; principal; 2016-11-24)
DX: F11.23 Opioid dependence with withdrawal (principal); F14.20 Cocaine dependence, uncomplicated; F19.24 Other psychoactive substance dependence with psychoactive substance-induced mood disorder; I10 Essential (primary) hypertension; E11.9 Type 2 diabetes mellitus without complications; Z79.4 Long term (current) use of insulin; J45.20 Mild intermittent asthma, uncomplicated; J42 Unspecified chronic bronchitis; B18.2 Chronic viral hepatitis C
CPT/HCPCS: 36415; 71101-TC; 80053; 81003; 82150; 83690; 84450; 84460; 85027; 85660; 86593; 93005; 93010; 94640; J1410

== ENCOUNTER 2016-11-24 10:25 | Inpatient (IN) | payer OTHER ==
--- NOTE | 2016-11-24 11:46 | HP ---
Psychiatrist Admission - Data Date of interview: 11/24/16 Admission source: [address] [place] [address] Identifying data: This is the first admission to [address] [place] [address] for this 56 years old AA single mother 37 years old daughter, resides with boyfriend,supported by [employer]. Medical History: COPD,HTN,BA,DM. Psychiatric History: denies Physical/Sexual Abuse/Trauma History: denies Allergies/Adverse Reactions: Allergies Allergy/AdvReac Type Severity Reaction Status Date / Time aspirin Allergy Intermediate Hives Verified 11/19/16 11:03 apple juice Allergy Intermediate Hives Uncoded 11/19/16 11:03 Date of last physical exam: 11/19/16 Concur with the findings of this exam: Yes - Substance Abuse/Tx History Hx Alcohol Use: Yes (reports drinking since ) Hx Substance Use: Yes (herin 4 bags daily since 36 yo,cocaine $100 since 25 yoXanax since 21) Substance Use Type: Cocaine, Heroin, Marijuana Hx Substance Use Treatment: Yes - Admission Criteria Previous failed treatment: Yes Poor recovery environment: Yes Comorbidities: Yes Lacks judgement: Yes Mental Status Exam - Mental Status Exam Alert and Oriented to: Time, Place, Person Cognitive Function: Grossly Intact Patient Appearance: Unkempt Mood: Euthymic Affect: Mood Congruent Speech Pattern: Clear Voice Loudness: Normal Thought Process: Goal Oriented Thought Disorder: Not Present Hallucinations: Denies Suicidal Ideation: Denies Homicidal Ideation: Denies Insight/Judgement: Fair Sleep: Fair Appetite: Fair Muscle strength/Tone: Normal Gait/Station: Normal Psychiatric Findings - Problem List ([place] 1, 2,3) (1) Cannabis dependence, uncomplicated Current Visit: Yes Status: Acute (2) Cocaine dependence, uncomplicated Current Visit: Yes Status: Acute (3) Drug-induced mood disorder Current Visit: Yes Status: Chronic (4) Opioid dependence with withdrawal Current Visit: Yes Status: Acute (5) Asthma Current Visit: Yes Status: Chronic Qualifiers: Asthma severity: mild intermittent Asthma complication type: uncomplicated Qualified Code(s): J45.20 - Mild intermittent asthma, uncomplicated (6) COPD (chronic obstructive pulmonary disease) Current Visit: Yes Status: Chronic Qualifiers: COPD type: chronic bronchitis Chronic bronchitis type: unspecified Qualified Code(s): J42 - Unspecified chronic bronchitis (7) Diabetes mellitus Current Visit: Yes Status: Chronic Qualifiers: Diabetes mellitus type: type 2 Diabetes mellitus complication status: without complication Diabetes mellitus terminal worker insulin use: with correction use Qualified Code(s): E11.9 - Type 2 diabetes mellitus without complications (8) Hepatitis C Current Visit: Yes Status: Chronic Qualifiers: Viral hepatitis chronicity: chronic Hepatic coma status: without hepatic coma Qualified Code(s): B18.2 - Chronic viral hepatitis C - Initial Treatment Plan Initial Treatment Plan: Will monitor progress.
[2016-11-24] MEDS ORDERED: MAGNESIUM CITRATE 300 ML BOTTLE PO PRN (15:01)
[2016-11-24] MEDS ORDERED: NICOTINE POLACRILEX 2 MG GUM BUC PRN (15:01)
[2016-11-24] MEDS ORDERED: guaiFENesin/D-METHORPHAN HB 10 ML UNIT-DOSE CUPS PO PRN (15:01)
[2016-11-24] MEDS ORDERED: LOPERAMIDE HCL 2 MG CAPSULE PO PRN (15:01)
[2016-11-24] MEDS ORDERED: MAGNESIUM HYDROX 2400MG/30ML ORAL SUSPENSION 30 ML CUP PO PRN (15:01)
[2016-11-24] MEDS ORDERED: P-EPHED 60MG/TRIPROLIDI 2.5MG TABLET PO PRN (15:01)
[2016-11-24] MEDS ORDERED: ALBUTEROL SO4 6.7 GM HFA INHALER IH PRN (15:03)
--- NOTE | 2016-11-24 15:08 | HP ---
DOR[facility] Rehab Assess/Revision - Admission History Admitted to Rehab from: [facility] Date of Admission to Rehab: 11/24/16 - Vital signs Vital Signs: Vital Signs Period Temp Pulse Resp BP Sys/Javier Pulse Ox Last 24 Hr 98.1 F 82 16 99/66 - Findings Detox History & Physical reviewed: Yes Concur with findings: Yes
[2016-11-24] MEDS: INSULIN SLIDING SCALE (NOVOLOG) 1 VIAL SQ SCH ×2 (17:11→21:26)
[2016-11-24] MEDS: BUDESONIDE/FORMETEROL FUMARATE 160/4.5 mcg INHALER IH SCH (21:24)
[2016-11-24] MEDS: CARVEDILOL 3.125 MG TABLET (FP) PO SCH (21:25)
[2016-11-24] MEDS: THIAMINE HCL 100 MG TABLET (FP) PO SCH (21:25)
[2016-11-24] MEDS: diphenhydrAMINE HCL 50 MG CAPSULE PO PRN (21:28)
[2016-11-24] MEDS: INSULIN DETEMIR 100 UNITS/ML MDV SQ SCH (21:28)
[2016-11-24] MEDS ORDERED: INSULIN DETEMIR 100 UNITS/ML MDV SQ SCH (22:00)
[2016-11-24] MEDS: MAG HYDROX/AL HYDROX/SIMETH 30 ML UNIT-DOSE CUP PO PRN (22:28)
[2016-11-25] MEDS ORDERED: PT OWN MED DRAWER 7, Y5N ONE ×2 (03:15→08:12)
[2016-11-25] MEDS: INSULIN SLIDING SCALE (NOVOLOG) 1 VIAL SQ SCH ×4 (06:39→21:24)
[2016-11-25] MEDS: glyBURIDE 5 MG TABLET (UD) PO SCH (06:39)
[2016-11-25] MEDS: MAG HYDROX/AL HYDROX/SIMETH 30 ML UNIT-DOSE CUP PO PRN (09:01)
[2016-11-25] MEDS: MENTHOL/PHENOL 1 EACH UD MM PRN ×3 (09:01→21:29)
[2016-11-25] MEDS: CARVEDILOL 3.125 MG TABLET (FP) PO SCH ×2 (09:02→21:24)
[2016-11-25] MEDS: ESTROGENS,CONJUGATED 0.625 MG TABLET PO SCH (09:02)
[2016-11-25] MEDS: COLCHICINE 0.6 MG TABLET (FP) PO SCH (09:02)
[2016-11-25] MEDS: PRENATAL VITAMINS W/ FOLIC ACID TABLET (FP) PO SCH (09:02)
[2016-11-25] MEDS: BUDESONIDE/FORMETEROL FUMARATE 160/4.5 mcg INHALER IH SCH ×2 (09:02→21:24)
[2016-11-25] MEDS: ATORVASTATIN CA 20 MG TABLET (FP) PO SCH (09:03)
[2016-11-25] MEDS: CHOLECALCIFEROL (VITAMIN D3) 1,000 UNIT TABLET (FP) PO SCH (09:04)
[2016-11-25] MEDS: NICOTINE 14 MG/24 HOURS TOPICAL PATCH TD SCH (09:04)
[2016-11-25] MEDS: ACETAMINOPHEN 325 MG TABLET (FP) PO PRN (11:50)
[2016-11-25] MEDS: THIAMINE HCL 100 MG TABLET (FP) PO SCH (21:24)
[2016-11-25] MEDS: diphenhydrAMINE HCL 50 MG CAPSULE PO PRN (21:25)
[2016-11-25] MEDS: INSULIN DETEMIR 100 UNITS/ML MDV SQ SCH (22:32)
[2016-11-26] MEDS ORDERED: PT OWN MED DRAWER 7, Y5N ONE ×4 (03:16→21:33)
[2016-11-26] MEDS: glyBURIDE 5 MG TABLET (UD) PO SCH (06:25)
[2016-11-26] MEDS: INSULIN SLIDING SCALE (NOVOLOG) 1 VIAL SQ SCH ×4 (06:26→22:30)
[2016-11-26] MEDS: COLCHICINE 0.6 MG TABLET (FP) PO SCH (09:30)
[2016-11-26] MEDS: CHOLECALCIFEROL (VITAMIN D3) 1,000 UNIT TABLET (FP) PO SCH (09:30)
[2016-11-26] MEDS: PRENATAL VITAMINS W/ FOLIC ACID TABLET (FP) PO SCH (09:31)
[2016-11-26] MEDS: CARVEDILOL 3.125 MG TABLET (FP) PO SCH ×2 (09:32→21:32)
[2016-11-26] MEDS: ATORVASTATIN CA 20 MG TABLET (FP) PO SCH (09:32)
[2016-11-26] MEDS: BUDESONIDE/FORMETEROL FUMARATE 160/4.5 mcg INHALER IH SCH ×2 (09:32→21:35)
[2016-11-26] MEDS: NICOTINE 14 MG/24 HOURS TOPICAL PATCH TD SCH (09:33)
[2016-11-26] MEDS: ESTROGENS,CONJUGATED 0.625 MG TABLET PO SCH (09:34)
[2016-11-26] MEDS: ACETAMINOPHEN 325 MG TABLET (FP) PO PRN ×2 (11:53→23:54)
[2016-11-26] MEDS: THIAMINE HCL 100 MG TABLET (FP) PO SCH (21:32)
[2016-11-26] MEDS ORDERED: INSULIN DETEMIR 100 UNITS/ML MDV SQ ONE (21:33)
[2016-11-26] MEDS: INSULIN DETEMIR 100 UNITS/ML MDV SQ SCH (21:34)
[2016-11-26] MEDS: diphenhydrAMINE HCL 50 MG CAPSULE PO PRN ×2 (21:35→23:54)
[2016-11-27] MEDS: INSULIN SLIDING SCALE (NOVOLOG) 1 VIAL SQ SCH ×4 (06:32→21:26)
[2016-11-27] MEDS: glyBURIDE 5 MG TABLET (UD) PO SCH (06:33)
[2016-11-27] MEDS: PRENATAL VITAMINS W/ FOLIC ACID TABLET (FP) PO SCH (09:51)
[2016-11-27] MEDS: NICOTINE 14 MG/24 HOURS TOPICAL PATCH TD SCH (09:52)
[2016-11-27] MEDS: ESTROGENS,CONJUGATED 0.625 MG TABLET PO SCH (09:52)
[2016-11-27] MEDS: COLCHICINE 0.6 MG TABLET (FP) PO SCH (09:52)
[2016-11-27] MEDS: ATORVASTATIN CA 20 MG TABLET (FP) PO SCH (09:52)
[2016-11-27] MEDS: BUDESONIDE/FORMETEROL FUMARATE 160/4.5 mcg INHALER IH SCH ×2 (09:52→21:29)
[2016-11-27] MEDS: CHOLECALCIFEROL (VITAMIN D3) 1,000 UNIT TABLET (FP) PO SCH (09:53)
[2016-11-27] MEDS ORDERED: PT OWN MED DRAWER 7, Y5N ONE ×2 (09:54→09:57)
[2016-11-27] MEDS: CARVEDILOL 3.125 MG TABLET (FP) PO SCH ×2 (10:00→21:25)
[2016-11-27] MEDS: LIDOCAINE 5% TOPICAL PATCH TP SCH (14:39)
[2016-11-27] MEDS ORDERED: INSULIN (NOVOLOG) ASPART 100 UNITS/ML 10ML VIAL ONE ×2 (16:50→22:09)
[2016-11-27] MEDS: metFORMIN HCL 500 MG TABLET (FP) PO SCH (17:05)
[2016-11-27] MEDS: THIAMINE HCL 100 MG TABLET (FP) PO SCH (21:25)
[2016-11-27] MEDS: INSULIN DETEMIR 100 UNITS/ML MDV SQ SCH (21:26)
[2016-11-27] MEDS ORDERED: SUVOREXANT 10 MG TABLET PO PRN ×2 (22:00)
[2016-11-27] MEDS ORDERED: INSULIN DETEMIR 100 UNITS/ML MDV SQ ONE (22:09)
[2016-11-28] MEDS: metFORMIN HCL 500 MG TABLET (FP) PO SCH ×2 (06:12→17:03)
[2016-11-28] MEDS: INSULIN SLIDING SCALE (NOVOLOG) 1 VIAL SQ SCH ×4 (06:52→21:36)
[2016-11-28] MEDS: MENTHOL/PHENOL 1 EACH UD MM PRN (08:36)
[2016-11-28] MEDS: LIDOCAINE 5% TOPICAL PATCH TP SCH (09:51)
[2016-11-28] MEDS: CARVEDILOL 3.125 MG TABLET (FP) PO SCH ×2 (09:52→21:34)
[2016-11-28] MEDS: BUDESONIDE/FORMETEROL FUMARATE 160/4.5 mcg INHALER IH SCH ×2 (09:52→21:38)
[2016-11-28] MEDS: COLCHICINE 0.6 MG TABLET (FP) PO SCH (09:52)
[2016-11-28] MEDS: PRENATAL VITAMINS W/ FOLIC ACID TABLET (FP) PO SCH (09:53)
[2016-11-28] MEDS: CHOLECALCIFEROL (VITAMIN D3) 1,000 UNIT TABLET (FP) PO SCH (09:53)
[2016-11-28] MEDS: ATORVASTATIN CA 20 MG TABLET (FP) PO SCH (09:53)
[2016-11-28] MEDS: NICOTINE 14 MG/24 HOURS TOPICAL PATCH TD SCH (09:54)
[2016-11-28] MEDS: ESTROGENS,CONJUGATED 0.625 MG TABLET PO SCH (09:54)
[2016-11-28] MEDS: THIAMINE HCL 100 MG TABLET (FP) PO SCH (21:34)
[2016-11-28] MEDS: INSULIN DETEMIR 100 UNITS/ML MDV SQ SCH (21:36)
[2016-11-28] MEDS ORDERED: INSULIN (NOVOLOG) ASPART 100 UNITS/ML 10ML VIAL ONE ×2 (22:07→22:08)
[2016-11-29] MEDS: INSULIN SLIDING SCALE (NOVOLOG) 1 VIAL SQ SCH (06:40)
[2016-11-29] MEDS: metFORMIN HCL 500 MG TABLET (FP) PO SCH (06:41)
[2016-11-29 07:22] VITALS: TEMP 98.2
[2016-11-29] MEDS ORDERED: PT OWN MED DRAWER 7, Y5N ONE (08:58)
[2016-11-29] MEDS: ESTROGENS,CONJUGATED 0.625 MG TABLET PO SCH (09:05)
[2016-11-29] MEDS: ATORVASTATIN CA 20 MG TABLET (FP) PO SCH (09:05)
[2016-11-29] MEDS: CARVEDILOL 3.125 MG TABLET (FP) PO SCH (09:06)
[2016-11-29] MEDS: COLCHICINE 0.6 MG TABLET (FP) PO SCH (09:06)
[2016-11-29] MEDS: PRENATAL VITAMINS W/ FOLIC ACID TABLET (FP) PO SCH (09:06)
[2016-11-29] MEDS: CHOLECALCIFEROL (VITAMIN D3) 1,000 UNIT TABLET (FP) PO SCH (09:07)
[2016-11-29] MEDS: NICOTINE 14 MG/24 HOURS TOPICAL PATCH TD SCH (09:08)
[2016-11-29] MEDS: LIDOCAINE 5% TOPICAL PATCH TP SCH (09:09)
--- NOTE | 2016-11-29 10:03 | PN ---
Psychiatric Progress Note Vital Signs: Vital Signs Period Temp Pulse Resp BP Sys/Javier Pulse Ox Last 24 Hr 98.2 F 75-80 16-18 108-149/77-95 Date of Session: 11/29/16 Chief Complaint:: Discharge visit HPI: Opioid ,Cocaine and Cannabis dependence comorbid with Substance induced mood disorder. ROS: BA,COPD,Hep C,DM. Current Medications: Active Medications Generic Name Dose Route Start Last Admin Trade Name Freq PRN Reason Stop Dose Admin Acetaminophen 650 mg 11/24/16 15:01 11/26/16 23:54 Tylenol - PO 650 mg Q4H PRN Administration FEVER OR PAIN Al Hydroxide/Mg Hydroxide 30 ml 11/24/16 15:01 11/25/16 09:01 Mylanta Oral Suspension - PO 30 ml Q6H PRN Administration DYSPEPSIA Albuterol Sulfate 2 puff 11/24/16 15:03 Ventolin Hfa Inhaler - IH Q4H PRN ASTHMA Atorvastatin Calcium 20 mg 11/25/16 10:00 11/29/16 09:05 Lipitor - PO 20 mg DAILY EYAL Administration Budesonide/Formoterol Fumarate 1 puff 11/24/16 22:00 11/28/16 21:38 Symbicort 160/4.5mcg - IH 2 inh BID EYAL Administration Carvedilol 3.125 mg 11/24/16 22:00 11/29/16 09:06 Coreg - PO 3.125 mg BID EYAL Administration Cholecalciferol 5,000 unit 11/25/16 10:00 11/29/16 09:07 Vitamin D3 - PO 5,000 unit DAILY EYAL Administration Colchicine 0.6 mg 11/25/16 10:00 11/29/16 09:06 Colcrys - PO 0.6 mg DAILY EYAL Administration Diphenhydramine HCl 50 mg 11/24/16 15:01 11/26/16 23:54 Benadryl - PO 50 mg HSMR1 PRN Administration FOR ITCHING Estrogens Conjugated 0.625 mg 11/25/16 10:00 11/29/16 09:05 Premarin - PO 0.625 mg DAILY EYAL Administration Eucalyptus/Menthol/Phenol/Sorbitol 1 each 11/24/16 15:01 11/28/16 08:36 Cepastat Lozenge - MM 1 each Q4H PRN Administration SORE THROAT Guaifenesin 10 ml 11/24/16 15:01 Robitussin Dm - PO Q6H PRN COUGH Insulin Aspart 1 vial 11/24/16 16:30 11/29/16 06:40 Novolog Vial Sliding Scale - SQ Not Given ACHS [facility] Protocol Insulin Detemir 15 units 11/24/16 22:00 11/28/16 21:36 Levemir Vial SQ 15 units HS EYAL Administration Lidocaine 3 patch 11/27/16 13:45 11/29/16 09:09 Lidoderm Patch - TP Not Given DAILY EYAL Loperamide HCl 4 mg 11/24/16 15:01 Imodium - PO Q6H PRN DIARRHEA Magnesium Hydroxide 30 ml 11/24/16 15:01 Milk Of Magnesia - PO DAILY PRN CONSTIPATION Metformin HCl 500 mg 11/27/16 16:30 11/29/16 06:41 Glucophage - PO Not Given BID@0700,1630 EYAL Nicotine 14 mg 11/25/16 10:00 11/29/16 09:08 Nicoderm Patch - TD 14 mg DAILY EYAL Administration Nicotine Polacrilex 2 mg 11/24/16 15:01 Nicorette Gum - BUC Q2H PRN NICOTINE REPLACEMENT RX Multivit/Folic Acid/Iron 1 tab 11/25/16 10:00 11/29/16 09:06 Vitamins (Sjr) - PO 1 tab DAILY EYAL Administration Pseudoephedrine/Triprolidine 1 combo 11/24/16 15:01 Actifed - PO TID PRN NASAL CONGESTION Thiamine HCl 100 mg 11/24/16 22:00 11/28/16 21:34 Vitamin B1 - PO 100 mg HS EYAL Administration Current Side Effect: No Lab tests ordered: No Lab tests reviewed: Yes Provider note:: Chart was revuewed,patient was seen in my office due to unexpectable discharge.According to the patient she has to be on the of one of her relatives today.Importance of her further stabilization has been discussed with the patient as well as risk of the relapse.Patient decided to sign out AMA ignoring our recommendations.She will continue to address her issues on outpatient basis .Coping skills,support system has been discussed with the patient. Total face to face time:: 35 Mental Status Exam - Mental Status Exam Alert and Oriented to: Time, Place, Person Cognitive Function: Grossly Intact Patient Appearance: Unkempt Mood: Euthymic Affect: Mood Congruent Patient Behavior: Resitive to Care Speech Pattern: Clear Voice Loudness: Normal Thought Process: Goal Oriented Thought Disorder: Not Present Hallucinations: Denies Suicidal Ideation: Denies Homicidal Ideation: Denies Insight/Judgement: Poor Sleep: Fair Appetite: Good Muscle strength/Tone: Normal Gait/Station: Normal Psychiatric Treatment Plan - Problem List (1) Cannabis dependence, uncomplicated Current Visit: Yes (2) Cocaine dependence, uncomplicated Current Visit: Yes (3) Drug-induced mood disorder Current Visit: Yes (4) Opioid dependence with withdrawal Current Visit: Yes (5) Asthma Current Visit: Yes Qualifiers: Asthma severity: mild intermittent Asthma complication type: uncomplicated Qualified Code(s): J45.20 - Mild intermittent asthma, uncomplicated (6) COPD (chronic obstructive pulmonary disease) Current Visit: Yes Qualifiers: COPD type: chronic bronchitis Chronic bronchitis type: unspecified Qualified Code(s): J42 - Unspecified chronic bronchitis (7) Diabetes mellitus Current Visit: Yes Qualifiers: Diabetes mellitus type: type 2 Diabetes mellitus complication status: without complication Diabetes mellitus diploma dental assistant insulin use: with correction use Qualified Code(s): E11.9 - Type 2 diabetes mellitus without complications (8) Hepatitis C Current Visit: Yes Qualifiers: Viral hepatitis chronicity: chronic Hepatic coma status: without hepatic coma Qualified Code(s): B18.2 - Chronic viral hepatitis C
[2016-11-29 10:30] VITALS: BP 121/70; PULSE 85
== END 2016-11-29 09:52 | disposition left against medical advice (07) | DRG 770 ==
LOC: YASAS 10:25 → Y3E 10:26
PROVIDERS: ADMIT Psychiatry & Neurology Psychiatry; ATTEND Psychiatry & Neurology Psychiatry
PROC: HZ42ZZZ Group Counseling for Substance Abuse Treatment, Cognitive-Behavioral (ICD-10-PCS; principal; 2016-11-24)
DX: F11.20 Opioid dependence, uncomplicated (principal); F14.20 Cocaine dependence, uncomplicated; F12.20 Cannabis dependence, uncomplicated; F19.24 Other psychoactive substance dependence with psychoactive substance-induced mood disorder; J45.20 Mild intermittent asthma, uncomplicated; J42 Unspecified chronic bronchitis; B18.2 Chronic viral hepatitis C; E11.9 Type 2 diabetes mellitus without complications; Z79.4 Long term (current) use of insulin
CPT/HCPCS: J1410